=== PATIENT | male | born 1960 | race Caucasian/White ===

== ENCOUNTER 2020-02-04 22:01 | Emergency (ER) | payer MEDICARE, MEDICAID ==
[~2020-02-04] VITALS: Ht 182.9 cm; Wt 75.0 kg
[2020-02-04] MEDS ORDERED: albuterol 2.5 MG/3 ML nebule NEB ONE (22:10)
--- NOTE | 2020-02-04 22:14 | NUR ---
[facility] PT PULLED OUT COR GORDO EARLIER TODAY AND VOMITED AFTERWARDS
--- NOTE | 2020-02-04 22:15 | NUR ---
WALLY SON AN DAUGHTER IN [employer] [phone]
[2020-02-04] MEDS ORDERED: NORepinephrine 8mg/ 250ml NS 250 ML IV SCH (22:20)
[2020-02-04 22:25] LABS: ABG BASE EXCESS -1.8 mmol/L (-2.0-2.0); ABG HCO3 23.5 mmol/L (22.0-26.0); ABG OXYGEN SATURATION 87.3 % (94-97); ABG PCO2 (T) 42.2 mmHg (35.0-48.0); ABG PO2 (T) 55.2 mmHg (75.0-100.0); ALLEN'S TEST POSITIVE; FCOHb 0.9 % (0.0-3.9); FMetHb 0.3 % (0.0-1.5); FO2Hb 86.3 % (94-97); TOTAL HEMOGLOBIN 12.3 G/dl (14.0-18.0)
--- NOTE | 2020-02-04 22:31 | NUR ---
Norepinephrin held for map of 66. Patient is currently too unstable for CT studies. Dr. Block aware.
[2020-02-04] MEDS ORDERED: iohexol 350MG/ML 100ml bottle IV ONE (22:38)
--- NOTE | 2020-02-04 22:46 | NUR ---
Patient is tolerating lying flat. Will transport to CT when CT is available.
--- NOTE | 2020-02-04 22:52 | NUR ---
PT PACKAGED AND GOING TO CT WITH MONITORING AND RT AND RN AND SENIOR MANUFACTURING SUPERVISOR, PT ON BIPAP TO CT.
[2020-02-04 22:55] LABS: BASOPHILS % (AUTO) 0.2 % (0-1); EOSINOPHILS % (AUTO) 0.2 % (0-6); HEMOGLOBIN 11.6 g/dl (14.0-17.9); LYMPHOCYTES # (AUTO) 0.6 X10'3 (1.1-4.8); MONOCYTES # (AUTO) 0.3 X10'3 (0-0.9); NEUTROPHILS # (AUTO) 3.3 X10'3 (1.8-7.7); RED CELL DISTRIBUTION WIDTH 19.7 % (11.5-14.5)
[2020-02-04 22:57] LABS: HEMATOCRIT 34.8 % (42.0-52.0); LYMPHOCYTES % (AUTO) 14.4 % (21-51); MEAN CORPUSCULAR HEMOGLOBIN 30.2 PG (27.0-31.0); MEAN CORPUSCULAR HGB CONC 33.3 g/dL (33.0-36.5); MEAN CORPUSCULAR VOLUME 90.7 FL (78-98); MEAN PLATELET VOLUME 8.5 FL (7.4-10.4); MONOCYTES % (AUTO) 7.5 % (2-12); NEUTROPHILS % (AUTO) 77.7 % (42-75); PLATELET COUNT 67 X10'3 (140-440); RED BLOOD COUNT 3.84 X10'6 (4.70-6.10); WHITE BLOOD COUNT 4.2 X10'3 (4.5-11.0)
--- NOTE | 2020-02-04 22:59 | NUR ---
FAMILY HAS ARRIVED AND PT IS CURRENTLY AT CT - FAMILY WAITING IN 17 - MD AND PRIMARY RN AWARE
[2020-02-04 23:06] LABS: PARTIAL THROMBOPLASTIN TIME 49 SECONDS (22-32)
[2020-02-04 23:14] LABS: ALANINE AMINOTRANSFERASE 27 U/L (12-78); ALBUMIN 2.3 G/DL (3.4-5.0); ALBUMIN/GLOBULIN RATIO 0.9 (1.1-1.5); ALKALINE PHOSPHATASE 56 IU/L (46-116); ANION GAP 6 (8-16); ASPARTATE AMINO TRANSFERASE 26 U/L (10-37); BILIRUBIN,TOTAL 1.4 MG/DL (0.1-1.0); BLOOD UREA NITROGEN 17 MG/DL (7-18); CALCIUM 7.9 MG/DL (8.5-10.1); CHLORIDE 105 MMOL/L (99-107); CREATININE 0.81 MG/DL (0.60-1.10); GLUCOSE 164 MG/DL (70-104); POTASSIUM 3.8 MMOL/L (3.5-5.1); SODIUM 139 MMOL/L (135-145); TOTAL CARBON DIOXIDE 27.6 MMOL/L (24-32); eGFR > 90 ML/MIN
--- NOTE | 2020-02-04 23:27 | NUR ---
FAMILY AT BEDSIDE
--- NOTE | 2020-02-04 23:46 | NUR ---
Dr. Block updated on patient's oxygen and blood pressure deteriorating. He requests levophed be started by PIV for now.
--- NOTE | 2020-02-04 23:52 | NUR ---
Levophed titrated up to 0.15mcg/kg/min
--- NOTE | 2020-02-05 00:02 | NUR ---
levophed titrated up.
--- NOTE | 2020-02-05 00:07 | NUR ---
levophed increased to 0.25mcg/kg/min
--- NOTE | 2020-02-05 00:11 | NUR ---
per md voss, norepi moved to 1mcg/kg/min due to deteriorating bp.
--- NOTE | 2020-02-05 00:12 | NUR ---
MD PIERRE DISCUSSING PLAN OF CARE WITH FAMILY, INCLUDING THE OPTIONS REGARDING COMFORT CARE.
[2020-02-05] MEDS ORDERED: morphine 4 MG/ML inj SYRINge IV ONE (00:15)
--- NOTE | 2020-02-05 00:21 | NUR ---
MD NOTIFIED OF BP CHANGE WITH NOREPI. NOR EPI HELD. PER MD, RATE WILL BE DROPPED TO 0.5 MCG/KG/MIN. DISCUSSED PLAN OF CARE WITH MD. PER MD, GIVE PT MORPHINE FOR COMFORT CARE, AND REMOVE BIPAP IF PT REQUESTS AND REPLACE WITH NC.
--- NOTE | 2020-02-05 01:05 | NUR ---
Returned from lunch, Dr. Block at bedside speaking with the patient's family. The family agrees with the plan for comfort measures. Patient appears to be in no sort of distress at this time.
[2020-02-05 01:17] VITALS: BP 38/20
--- NOTE | 2020-02-05 01:24 | NUR ---
Patient went into a bradycardic rhythm in the 30s before going into asystole. Dr. Block called to bedside and pronounced the patient as .
== END 2020-02-05 04:21 | disposition expired ==
LOC: ER 22:02
DX: J96.01 Acute respiratory failure with hypoxia (principal); K56.699 Other intestinal obstruction unspecified as to partial versus complete obstruction; J69.0 Pneumonitis due to inhalation of food and vomit
CPT/HCPCS: 36415; 36600; 71045; 71275; 74177; 80053; 82140; 82803; 83880; 84145; 84484; 85018; 85025; 85610; 85730; 87040; 93005; 94640; 94660; 96365; 96366; 96375; 99291; 99292; J2270; Q9967; 94760